=== PATIENT | female | born 1955 | race Caucasian/White ===

== ENCOUNTER 2018-08-08 13:32 | Emergency (ER) | payer BC ==
--- OUTSIDE RECORDS SUMMARY | 2018-08-08 13:43 | XMS REPORT | Clinical Summary ---
:1955 Author Organization [facility] Address [address] [place] [address] Care Team Providers Name Role Phone Neil Primary Care Provider Allergies Active Allergy Reactions Severity Noted Date Comments Tetanus Vaccines And Toxoid 09/27/2015 Medications Medication Sig Dispensed Refills Start Date End Date Status escitalopram oxalate Take 20 mg by 0 Active (LEXAPRO) 20 MG tablet mouth daily. omeprazole (PRILOSEC) Take 40 mg by 0 Active 40 MG capsule mouth daily. ferrous sulfate 325 (65 Take 325 mg by 0 Active FE) MG tablet mouth daily with breakfast. metFORMIN (GLUCOPHAGE) Take 1,000 mg by 0 Active 1000 MG tablet mouth daily with breakfast. ALPRAZolam (XANAX) 0.5 Take 0.5 mg by 0 Active MG tablet mouth every night as needed for Anxiety. roflumilast (DALIRESP) Take 500 mcg by 0 Active 500 mcg Tab tablet mouth daily. valsartan (DIOVAN) 160 Take 160 mg by 0 Active MG tablet mouth daily. tiotropium (SPIRIVA) 18 Inhale 18 mcg by 0 Active mcg inhalation capsule mouth via inhaler daily. levomefolate calcium Take by mouth. 0 Active (DEPLIN) 15 mg Tab zolpidem (AMBIEN CR) Take 12.5 mg by 0 Active 12.5 MG CR tablet mouth every night as needed for Insomnia. Active Problems Problem Noted Date Infected venous access port 09/29/2015 Social History Tobacco Use Types Packs/Day Years Used Date Former Smoker Comments: quit 8 yrs ago Alcohol Use Drinks/Week oz/Week Comments No Sex Assigned at Date Recorded Not on file Job Start Date Occupation Industry Not on file Not on file Not on file Travel History Travel Start Travel End No recent travel history available. Last Filed Vital Signs Not on file Plan of Treatment Not on file Results Not on fileafter 08/07/2017 Insurance Payer Benefit Plan / Group Subscriber ID Type Phone Address [facility] H[facility]/POS/OPEN ACCESS xxxxxxxxxxx HMO/POS
[2018-08-08] MEDS ORDERED: MORPHINE 4 MG/ML SYR ONE (15:19)
[2018-08-08] MEDS ORDERED: CYCLOBENZAPRINE 10 MG TAB ONE (15:19)
[2018-08-08] MEDS ORDERED: IBUPROFEN 200 MG TAB PO ONE (15:19)
[2018-08-08] MEDS ORDERED: IBUPROFEN 400 MG TAB ONE (15:19)
[2018-08-08] MEDS ORDERED: ONDANSETRON 4 MG (ODT) TAB ONE (15:20)
--- NOTE | 2018-08-08 15:26 | ER ---
Nurse's Notes [facility] Name: Luisa Silver Age: 63 yrs Sex: Female : 1955 Arrival Date: 08/08/2018 Time: 13:37 Bed 19 Private MD: Ariel Julio Diagnosis: Lumbago with sciatica, right side Presentation: 08/08 13:44 Presenting complaint: Patient states: R low back pain that radiates down R leg. Pain ss began 1.5 weeks ago after patient slept on a bad mattress. Transition of care: patient was not received from another setting of care. 13:44 Method Of Arrival: Ambulatory ss 13:46 Onset of symptoms is unknown. Risk Assessment: Do you want to hurt yourself or someone ss else? Patient reports no desire to harm self or others. Initial Sepsis Screen: Does the patient meet any 2 criteria? No. Patient's initial sepsis screen is negative. Does the patient have a suspected source of infection? No. Patient's initial sepsis screen is negative. Care prior to arrival: None. 13:46 Acuity: MARCUS 4 ss Historical: - Allergies: 13:47 tegaderm tape; ss - PMHx: 13:47 breast cancer; COPD; Diabetes - NIDDM; Hyperlipidemia; Hypertension; ss - PSHx: 13:47 Cholecystectomy; Appendectomy; Hysterectomy; back sx; Mastectomy, Left; ss - Immunization history:: Adult Immunizations up to date. - Social history:: Smoking status: Patient/guardian denies using tobacco. - Ebola Screening: : Patient denies exposure to infectious person Patient denies travel to an Ebola-affected area in the 21 days before illness onset. Screenin:45 Abuse screen: Denies threats or abuse. Nutritional screening: No deficits noted. em Tuberculosis screening: No symptoms or risk factors identified. Fall Risk None identified. Assessment: 14:50 General: Appears in no apparent distress. uncomfortable, Behavior is calm, cooperative. em Pain: Complains of pain in right lower back Pain radiates to right leg. Neuro: Level of Consciousness is awake, alert, obeys commands, Oriented to person, place, time, situation. Cardiovascular: Capillary refill < 3 seconds Patient's skin is warm and dry. Respiratory: Airway is patent Respiratory effort is even, unlabored, Respiratory pattern is regular, symmetrical. GI: Abdomen is flat, Patient currently denies nausea, vomiting. Derm: Skin is intact, is healthy with good turgor, Skin is pink, warm \T\ dry. Musculoskeletal: Capillary refill < 3 seconds, Range of motion: intact in all extremities. 14:55 General: The previous assessment is accurate, call light remains within reach. ss 15:39 Reassessment: Patient appears in no apparent distress at this time. Patient and/or em family updated on plan of care and expected duration. Pain level reassessed. Patient is alert, oriented x 3, equal unlabored respirations, skin warm/dry/pink. rates pain 2/10 Patient states feeling better. Patient states symptoms have improved. Vital Signs: 13:47 BP 137 / 84; Pulse 92; Resp 17; Temp 97.9(O); Pulse Ox 98% on R/A; Weight 77.11 kg; ss Height 5 ft. 5 in. (165.10 cm); Pain 7/10; 15:38 BP 145 / 88; Pulse 77; Resp 16; Pulse Ox 99% on R/A; Pain 2/10; em 13:47 Body Mass Index 28.29 (77.11 kg, 165.10 cm) ss ED Course: 13:37 Patient arrived in ED. mr 13:38 Ariel Julio MD is Private Physician. mr 13:46 Triage completed. ss 13:47 Arm band placed on right wrist. ss 14:15 Mil Quezada LVN is Primary Nurse. em 14:15 Lennox Marcano NP is PHCP. pm1 14:15 Odilon Meredith MD is Attending Physician. pm1 14:45 Patient has correct armband on for positive identification. Placed in gown. Bed in low em position. Adult w/ patient. Pulse ox on. NIBP on. 15:38 No provider procedures requiring assistance completed. Patient did not have IV access em during this emergency room visit. Administered Medications: 15:12 Drug: morphine 4 mg Route: IM; Site: right deltoid; ss 15:39 Follow up: Response: No adverse reaction; Pain is decreased em 15:12 Drug: Flexeril 10 mg Route: PO; ss 15:39 Follow up: Response: No adverse reaction; Pain is decreased em 15:12 Drug: Ibuprofen 600 mg Route: PO; ss 15:39 Follow up: Response: No adverse reaction; Pain is decreased em 15:12 Drug: Zofran 4 mg Route: PO; ss 15:39 Follow up: Response: No adverse reaction em Outcome: 15:26 Discharge ordered by . pm1 15:38 Discharged to home ambulatory, with family. em 15:38 Condition: good 15:38 Discharge instructions given to patient, family, Instructed on discharge instructions, follow up and referral plans. medication usage, Demonstrated understanding of instructions, follow-up care, medications, Prescriptions given X 2. 15:40 Patient left the ED. em Signatures: Tati Snider Damien, Mil, ELECTROSTATIC POWDER COATING TECHNICIAN ELECTROSTATIC POWDER COATING TECHNICIAN em Mandie Chambers, SURAJ RN ss Lennox Marcano, LOCOMOTIVE CRANE OPERATOR LOCOMOTIVE CRANE OPERATOR pm1
--- NOTE | 2018-08-08 15:26 | EDPHYS ---
Physician Documentation [facility] Name: Luisa Silver Age: 63 yrs Sex: Female : 1955 Arrival Date: 08/08/2018 Time: 13:37 Bed 19 Private MD: Ariel Julio ED Physician Odilon Meredith HPI: 08/08 15:01 This 63 yrs old Female presents to ER via Ambulatory with complaints of Back pm1 Pain, Leg Pain. 15:01 The patient presents with pain that is acute. The symptoms are located in the right low pm1 back. Onset: The symptoms/episode began/occurred 1.5 week(s) ago. The pain radiates to the right quadriceps. Associated signs and symptoms: Pertinent negatives: abdominal pain, chest pain, constipation, dysuria, fever, headache, incontinence, nausea, numbness, tingling, vomiting, weakness. The problem was sustained sleeping on pullout bed mattress from a couch. Onset of pain after sleeping on it. Modifying factors: The patient symptoms are alleviated by nothing, the patient symptoms are aggravated by nothing. Severity of symptoms: in the emergency department the symptoms are unchanged. The patient has experienced similar episodes in the past, and the symptoms today are exactly the same, to previous low back pain with sciatica. Historical: - Allergies: 13:47 tegaderm tape; ss - PMHx: 13:47 breast cancer; COPD; Diabetes - NIDDM; Hyperlipidemia; Hypertension; ss - PSHx: 13:47 Cholecystectomy; Appendectomy; Hysterectomy; back sx; Mastectomy, Left; ss - Immunization history:: Adult Immunizations up to date. - Social history:: Smoking status: Patient/guardian denies using tobacco. - Ebola Screening: : Patient denies exposure to infectious person Patient denies travel to an Ebola-affected area in the 21 days before illness onset. ROS: 15:01 Constitutional: Negative for fever, chills, and weight loss, Eyes: Negative for injury, pm1 pain, redness, and discharge, ENT: Negative for injury, pain, and discharge, Neck: Negative for injury, pain, and swelling, Cardiovascular: Negative for chest pain, palpitations, and edema, Respiratory: Negative for shortness of breath, cough, wheezing, and pleuritic chest pain, Abdomen/GI: Negative for abdominal pain, nausea, vomiting, diarrhea, and constipation. 15:01 : Negative for injury, bleeding, discharge, and swelling, MS/Extremity: Negative for injury and deformity, Skin: Negative for injury, rash, and discoloration, Neuro: Negative for headache, weakness, numbness, tingling, and seizure. 15:01 Back: Positive for of the right low back, pain. Exam: 15:01 Constitutional: This is a well developed, well nourished patient who is awake, alert, pm1 and in no acute distress. Head/Face: Normocephalic, atraumatic. Eyes: Pupils equal round and reactive to light, extra-ocular motions intact. Lids and lashes normal. Conjunctiva and sclera are non-icteric and not injected. Cornea within normal limits. Periorbital areas with no swelling, redness, or edema. ENT: Nares patent. No nasal discharge, no septal abnormalities noted. Tympanic membranes are normal and external auditory canals are clear. Oropharynx with no redness, swelling, or masses, exudates, or evidence of obstruction, uvula midline. Mucous membranes moist. Neck: Trachea midline, no thyromegaly or masses palpated, and no cervical lymphadenopathy. Supple, full range of motion without nuchal rigidity, or vertebral point tenderness. No Meningismus. Chest/axilla: Normal chest wall appearance and motion. Nontender with no deformity. No lesions are appreciated. Cardiovascular: Regular rate and rhythm with a normal S1 and S2. No gallops, murmurs, or rubs. Normal PMI, no JVD. No pulse deficits. Respiratory: Lungs have equal breath sounds bilaterally, clear to auscultation and percussion. No rales, rhonchi or wheezes noted. No increased work of breathing, no retractions or nasal flaring. Abdomen/GI: Soft, non-tender, with normal bowel sounds. No distension or tympany. No guarding or rebound. No evidence of tenderness throughout. 15:01 Skin: Warm, dry with normal turgor. Normal color with no rashes, no lesions, and no evidence of cellulitis. 15:01 Back: normal spinal alignment noted, vertebral tenderness, is not appreciated, muscle spasm, is appreciated in the right low back. 15:01 Neuro: Orientation: is normal, Motor: is normal, moves all fours, Sensation: is normal, no obvious gross deficits. Vital Signs: 13:47 BP 137 / 84; Pulse 92; Resp 17; Temp 97.9(O); Pulse Ox 98% on R/A; Weight 77.11 kg; ss Height 5 ft. 5 in. (165.10 cm); Pain 7/10; 15:38 BP 145 / 88; Pulse 77; Resp 16; Pulse Ox 99% on R/A; Pain 2/10; em 13:47 Body Mass Index 28.29 (77.11 kg, 165.10 cm) ss MDM: 14:16 Patient medically screened. pm1 15:26 Data reviewed: vital signs. Data interpreted: Pulse oximetry: on room air is 98 %. pm1 Interpretation: normal. Counseling: I had a detailed discussion with the patient and/or guardian regarding: the historical points, exam findings, and any diagnostic results supporting the discharge/admit diagnosis, the need for outpatient follow up, to return to the emergency department if symptoms worsen or persist or if there are any questions or concerns that arise at home. Administered Medications: 15:12 Drug: morphine 4 mg Route: IM; Site: right deltoid; ss 15:39 Follow up: Response: No adverse reaction; Pain is decreased em 15:12 Drug: Flexeril 10 mg Route: PO; ss 15:39 Follow up: Response: No adverse reaction; Pain is decreased em 15:12 Drug: Ibuprofen 600 mg Route: PO; ss 15:39 Follow up: Response: No adverse reaction; Pain is decreased em 15:12 Drug: Zofran 4 mg Route: PO; ss 15:39 Follow up: Response: No adverse reaction em Disposition: 08/09 07:25 Co-signature as Attending Physician, Odilon Meredith MD. rn Disposition: 08/08/18 15:26 Discharged to Home. Impression: Lumbago with sciatica, right side. - Condition is Stable. - Discharge Instructions: Back Pain, Adult, Sciatica. - Prescriptions for Tylenol- Codeine #3 300-30 mg Oral Tablet - take 2 tablets by ORAL route every 6 hours As needed; 20 tablet. Cyclobenzaprine 10 mg Oral Tablet - take 1 tablet by ORAL route every 8 hours As needed; 30 tablet. - Medication Reconciliation Form, Thank You Letter, Antibiotic Education, Prescription Opioid Use form. - Follow up: Emergency Department; When: As needed; Reason: Worsening of condition. Follow up: Private Physician; When: 2 - 3 days; Reason: Recheck today's complaints, Continuance of care, Re-evaluation by your physician. - Problem is new. - Symptoms have improved. Signatures: Mil Quezada, WIRE CHARGER WIRE CHARGER em Odilon Meredith MD MD rn Smirch, Shelby, RN RN ss Marinas, Patrick, BRYCE NON CDL DRIVER pm1 Corrections: (The following items were deleted from the chart) 08/08 15:40 15:26 08/08/2018 15:26 Discharged to Home. Impression: Lumbago with sciatica, right em side. Condition is Stable. Forms are Medication Reconciliation Form, Thank You Letter, Antibiotic Education, Prescription Opioid Use. Follow up: Emergency Department; When: As needed; Reason: Worsening of condition. Follow up: Private Physician; When: 2 - 3 days; Reason: Recheck today's complaints, Continuance of care, Re-evaluation by your physician. Problem is new. Symptoms have improved. pm1
[2018-08-08 16:11] VITALS: TEMP 97.9
[2018-08-08 16:12] VITALS: BP 145/88; O2SAT 99
== END 2018-08-08 15:40 | disposition home or self-care (01) ==
LOC: ER 13:32
DX: M54.41 Lumbago with sciatica, right side (principal); E11.9 Type 2 diabetes mellitus without complications; E78.5 Hyperlipidemia, unspecified; I10 Essential (primary) hypertension; C50.919 Malignant neoplasm of unspecified site of unspecified female breast; J44.9 Chronic obstructive pulmonary disease, unspecified
CPT/HCPCS: 96372; 99283